=== PATIENT | male | born 1940 | race Caucasian/White ===

== ENCOUNTER 2022-02-14 08:40 | Day surgery (SDC) | payer MEDICARE, SELFPAY ==
[2022-02-14] MEDS: Tropicam./Phenyleph. (1/2.5%) 5 ML BTL OD ×3 (10:33→11:05)
[2022-02-14 10:35] VITALS: BP 190/110; PULSE 79; RESP 15; TEMP 36.7; O2SAT 98
--- NOTE | 2022-02-14 11:02 | W.ANESPRE ---
General Info Date of Service Date Performed: 02/14/22 Height: 5 ft 7 in Weight: 78.2 kg Body Mass Index (BMI): 27.0 Surgical Procedure: Operation Date: 02/14/22 12:40 Proposed Procedure Side Surgeon p Cataract Extraction with IOL Implant Right Yury Mcpherson MD Meds Allergies and Home Medications Allergies Allergy/AdvReac Type Severity Reaction Status Date / Time carbinoxamine AdvReac Intermediate Urinary Unverified 02/14/22 10:26 retention chlorpheniramine AdvReac Intermediate urinary Unverified 02/14/22 10:26 retention hydroxyzine [From Vistaril] AdvReac Intermediate urinary Unverified 02/14/22 10:26 retention paroxetine [From Paxil] AdvReac Intermediate swelling Unverified 02/14/22 10:26 of hands pseudoephedrine AdvReac Intermediate urinary Unverified 02/14/22 10:26 retention Home Medication Medication Instructions Recorded acetaminophen 500 mg tablet 1,000 mg PO DAILY PRN 02/11/22 cyanocobalamin (vitamin B-12) 1,000 mcg PO HS 02/11/22 1,000 mcg tablet fluoxetine 10 mg capsule 10 mg PO DAILY 02/11/22 losartan 50 mg-hydrochlorothiazide 1 tab PO DAILY 02/11/22 12.5 mg tablet magnesium 250 mg tablet 250 mg PO DAILY 02/11/22 meloxicam 15 mg tablet 15 mg PO DAILY 02/11/22 metoprolol succinate 50 mg 50 mg PO DAILY 02/11/22 tablet,extended release 24 hr nitroglycerin 0.4 mg sublingual 0.4 mg sublingual DIRECTED 02/11/22 tablet (Nitrostat) omeprazole 20 mg capsule,delayed 20 mg PO DAILY 02/11/22 release potassium chloride 10 mEq 40 meq PO DAILY PRN 02/11/22 tablet,extended release trazodone 50 mg tablet 50 mg PO HS 02/11/22 tramadol 50 mg disintegrating 50 mg PO PRN PRN 02/14/22 tablet Current Visit Medications: Current Medications Generic Name Dose Route Start Last Admin Trade Name Freq PRN Reason Stop Dose Admin Acetaminophen 1,000 mg 02/14/22 06:00 Acetaminophen 500 Mg Tab PO Q4H PRN PRN Dextrose/Lactated Ringer's 1,000 mls @ 150 mls/hr 02/14/22 11:00 Dextrose 5%-Lr IV INFUSION [facility] Miscellaneous Medication 0 ml 02/14/22 06:00 Prednisolone 1%, Moxifloxacin 0.5%, Nepafenac 0.1% 5ml Btl OD DIRECTED [facility] Miscellaneous Medication 0 ml 02/14/22 06:00 02/14/22 11:00 Tropicam./Phenyleph. (1/2.5%) 5 Ml Btl OD 1 drp DIRECTED ADEEL Administration Tetracaine HCl 0 ml 02/14/22 06:00 Tetracaine 0.5% 4 Ml Btl OD DIRECTED [facility] Medical History Medical History (Updated 02/14/22 @ 11:03 by Yury Mcpherson MD) Central serous chorioretinopathy Esophageal perforation During hiatal hernia repair 10/29/21 GERD (gastroesophageal reflux disease) Glucose intolerance (impaired glucose tolerance) History of anxiety HTN (hypertension) Humeral surgical neck fracture Hx of hiatal hernia Numbness of right hand Osteoarthritis of knee Pain in left shoulder Patient is full code Medical History Comments:: opiod sensitive; recent para esophageal hernia repair 11/07; upcoming surgeries for recent mass occluding urethra; daily does ducolax to liquify stools; insomnia, hasnt slept in last 3 days but 1-2hrs Surgical History Surgical History (Updated 02/14/22 @ 10:22 by Sylvie Mercado) History of back surgery L4-L5 fusion Hx of tonsillectomy Tobacco Smoking/Tobacco Use Status: Former Tobacco Use Alcohol Alcohol Intake: former Substance Use Substance use: Never Substance use type: does not use Vital Signs and Lab Results Vital Signs Most Recent Vital Signs in EMR: Most Recent Vital Signs Temp Pulse Resp BP Pulse Ox 36.7 C 79 15 190/110 H 98 02/14/22 10:35 02/14/22 10:35 02/14/22 10:35 02/14/22 10:35 02/14/22 10:35 Lab Results Blood Type / Crossmatch: No Data to Display Complete Blood Count: No Data to Display Complete Metabolic Panel: No Data to Display Liver Function Panel: No Data to Display Coagulation Panel: No Data to Display Cardiac Panel: No Data to Display Arterial Blood Gas: No Data to Display Venous Blood Gas: No Data to Display Pancreas Panel: No Data to Display Thyroid Panel: No Data to Display Infectious Disease: No Data to Display Blood Cultures: No Data to Display Toxicology Panel: No Data to Display Anesthesia Assessment and Plan Anesthesia History Personal History: No History of Anesthesia Complications Family History: No Family History of Anesthesia Complications Exercise Tolerance Exercise Tolerance: Metabolic Equivalents>4 Pertinent Negatives Pertinent Negatives: No Symptoms of GERD, No Major Cardiovascular Symptoms or Complaints, No Major Pulmonary Symptoms or Complaints and No History of CVA/TIA Cardiac & Pulmonary Exam Cardiac Exam: Normal S1/S2 Heart Sounds Pulmonary Exam: Clear Bilateral Breath Sounds Implantable Cardiac Device Does patient have a Pacemaker or an ICD?: No Airway Exam Known Difficult Airway: No Mallampati Class: 2 Mouth Opening: Normal (> 3cm) Thyromental Distance: Greater than 3 cm Neck Range of Motion: Full ROM Neck Circumference: Normal Teeth Condition: Normal Dentition ASA Classification ASA Score: ASA 2 Emergency Case?: No NPO Status NPO Status: NPO Clears >2 hours, Solids >8 hours Anesthesia Plan Resuscitation Status: Full Code Anesthesia Technique: MAC Anesthesia Airway Planned: Natural Airway Monitors Used: Standard Monitors Preoperative Comments:: BP elevated, BS 53, patient c/o dizziness, IV started D5LR, will manage BP intraop
[2022-02-14 11:04] VITALS: BMI 27.0
[2022-02-14] MEDS: DEXTROSE 5%-LACTATED RINGERS 1,000 ML 150 ML IV (11:06)
[2022-02-14] MEDS: Lidocaine 2% Jelly 6 ML SYR (11:20)
[2022-02-14] MEDS: Lactated Ringers 1,000 ML 30 ML IV (11:23)
[2022-02-14] MEDS: Tetracaine 0.5% 4 ML BTL OD (11:24)
[2022-02-14] MEDS: Balanced Salt Soln.-PLUS 500 ML BAG (11:25)
[2022-02-14] MEDS: Povidone-Iodine Ophth 30 ML BTL (11:28)
[2022-02-14 11:44] VITALS: BP 158/92; PULSE 81; RESP 16; TEMP 37.2; O2SAT 97
--- NOTE | 2022-02-14 11:47 | PDOC.DSDIS_ITS ---
Discharge Plan Disposition Patient Disposition: HOME Condition: Good Discharge Details Attending Provider: Yury Mcpherson Primary Care Provider: Parrish Khan [facility] and New Rx's Prescriptions: No Action trazodone 50 mg Tablet 50 mg PO HS metoprolol succinate 50 mg Tablet Extended Release 24 Hr 50 mg PO DAILY meloxicam 15 mg Tablet 15 mg PO DAILY acetaminophen 500 mg Tablet 1,000 mg PO DAILY PRN fluoxetine 10 mg Capsule 10 mg PO DAILY nitroglycerin [Nitrostat] 0.4 mg Tablet, Sublingual 0.4 mg sublingual DIRECTED magnesium 250 mg Tablet 250 mg PO DAILY losartan-hydrochlorothiazide 50-12.5 mg Tablet 1 tab PO DAILY cyanocobalamin (vitamin B-12) 1,000 mcg Tablet 1,000 mcg PO HS potassium chloride 10 mEq Tablet Extended Release 40 meq PO DAILY PRN omeprazole 20 mg Capsule,Delayed Release(Dr/Ec) 20 mg PO DAILY tramadol 50 mg Tablet,Disintegrating 50 mg PO PRN PRN Discharge Instructions Stand Alone Forms: Post-op Topical Cataract, Eddie Marquez (DSU) Discharge Orders Discharge Orders: Discharge Order (Routine); Ordered 02/14/22 Ordered By: Yury Mcpherson DS: Diagnosis Discharge Diagnosis (1) Nuclear sclerotic cataract of right eye: Status: Resolved
--- NOTE | 2022-02-14 11:48 | ROE_ITS ---
Date of service: 02/14/22 Time of Service: 11:48 Operative Note Operative Note DATE OF PROCEDURE: 02/14/22 PRE-OP DIAGNOSIS: Nuclear cataract, right eye POST-OP DIAGNOSIS: same PROCEDURE: Cataract extraction using phacoemulsification with intraocular lens implant, right eye SURGEON: Yury Mcpherson ANESTHESIA TYPE: Local By Surgeon and MAC Refer to Anesthesia Record ESTIMATED BLOOD LOSS: 0 PATHOLOGY: none sent COMPLICATIONS: None Patient was transported to: same day Patient's condition: stable Implants: Yung & Yung/SHIMA Tecnis [id number] Indications: Progressive visual loss due to cataract, right eye Procedure Description: CATARACT SURGERY OPERATIVE REPORT PREOPERATIVE DIAGNOSIS: 1. Nuclear cataract, right eye POSTOPERATIVE DIAGNOSIS: Same OPERATION: 1. Cataract extraction using phacoemulsification with posterior chamber intraocular lens implant, right eye. IOL: IOL Hydrogen Plant Operations Manager/Model: Yung & Yung / SHIMA Tecnis [id number] IOL Power: + 21.0 diopters IOL Serial Number: [id number] Optic Diameter: 6.0mm Haptic/Overall Diameter: 13.0mm PHACO INFO: DwainTop Haturion Vision System with OZil and Active Fluidics Cumulative Dispersed Energy (CDE): 16.97 seconds SURGEON: Yury Mcpherson MD, TAURUS ANESTHESIA: Monitored Anesthesia Care (MAC), with local sub-tenon's anesthetic infiltration COMPLICATIONS: None SPECIMENS: None INDICATIONS FOR PROCEDURE: The patient is a 81-year-old gentleman with history of diminished visual acuity in his right eye secondary to development of nuclear cataract. He was significantly symptomatic that he desired cataract surgery and attempt to improve and maximize his vision. The option of cataract surgery was offered to the patient and he wished to proceed. PROCEDURE: The correct surgical eye was identified and marked as the right eye and the pupil was dilated in the preoperative area using mydriatics and cycloplegics. The dilated pupil size was seven-point mm. The patient elected to proceed without oral sedation. The patient was brought to the operating room where cardiopulmonary monitoring was instituted and surgical time-out was performed, confirming the correct operative eye and IOL power. Topical anesthesia was administered and ophthalmic povidone-iodine 5% was instilled into the conjunctival fornices. Lidocaine gel was applied to the cornea and the mckay-ocular area was prepped with Betadine 10% solution and draped in the usual sterile fashion for intraocular surgery, including an aperture drape. A Tegaderm transparent film dressing was cut in half and used to cover the lashes and lid margins. Care was taken to sequester the lashes and lid margins under the Tegaderm dressing. A lid speculum was placed between the lids of the operative eye and the Dwain Lux[employer] Revalia operating microscope was maneuvered into position. Joann scissors were then used to make a conjunctival buttonhole approximately 6mm posterior to the limbus in the inferonasal quadrant. Blunt dissection was carried out to expose bare sclera, and a blunt-tipped sub-tenon?s anesthesia cannula was introduced and passed posteriorly along the globe where non- preserved plain lidocaine was injected into posterior sub-Tenon?s space. A sideport knife was used to make a paracentesis port inferotemporally. Intraocular phenylephrine/lidocaine was injected into the anterior chamber. The anterior chamber was filled with viscoelastic. A keratome knife was used to construct a 2-plane near-clear corneal tunnel extending 2.0mm into clear cornea superiortemporally. A flap was raised on the anterior capsule and capsulorhexis forceps were used to complete a continuous curvilinear capsulorhexis of 5.5 mm. Balanced salt solution was then used to perform cortical cleaving hydrodissection and nuclear hydrodelineation until the lens could be freely rotated within the capsular bag. The lens nucleus was then disassembled and removed within the capsular bag and iris plane using phacoemulsification. Residual cortical material was removed using the I/A handpiece. The posterior capsule was carefully polished to remove as much residual lens epithelial cells as safely possible. The capsular bag was then inflated and the anterior chamber deepened with viscoelastic. The lens implant described above was inserted into the capsular bag using the SHIMA [place] Injector. A Kuglen hook was used to dial the IOL into position. Residual viscoelastic was then removed first from posterior to the IOL, then from the anterior chamber using the I/A handpiece. The lens implant was noted to center nicely within the capsular bag. The incisions were stromally hydrated, and the anterior chamber was reformed using BSS. Then 0.5cc of moxifloxacin 1.0mg/ml were injected into the capsular bag and anterior chamber. The incisions were checked with a Weck spear and found to be secure. Several drops of ophthalmic povidone-iodine 5% were then applied to the eye followed by two drops of Imprimis combination prednisolone/moxifloxacin/nepafenac solution. The drapes were removed and a clear plastic protective eye shield was placed over the eye. The patient was then returned to Same Day Surgery in stable condition.
--- NOTE | 2022-02-14 12:11 | W.ANESPOSTOP ---
Postoperative Evaluation Date, Time and Location Date Performed: 02/14/22 Time Performed: 11:31 Patient Location: Day Surgery Unit Vital Signs Most Recent Imported Vital Signs: Most Recent Vital Signs Temp Pulse Resp BP Pulse Ox 37.2 C 81 16 158/92 H 97 02/14/22 11:44 02/14/22 11:44 02/14/22 11:44 02/14/22 11:44 02/14/22 11:44 Pain Score Most Recent Pain Score: Most Recent Pain Score Pain Level 0 02/14/22 11:44 Assessment Mental Status: Awake (Alert & Oriented to Patient Baseline) Airway and Respiratory Function: Patent airway with normal (patient baseline) respiratory exam Cardiovascular Function: Hemodynamically Stable Hydration Status: Adequately Hydrated Nausea & Vomiting: No Nausea or Vomiting Pain: Pt. Denies Any Pain Peripheral Nerve Block: Patient did not receive a nerve block
== END 2022-02-14 12:45 | disposition home or self-care (01) ==
PROVIDERS: PCP Neuromusculoskeletal Medicine & OMM; Visit Provider Ophthalmology
PROC: (CPT 66984; principal; 2022-02-14 12:30)
DX: H25.11 Age-related nuclear cataract, right eye (principal); I10 Essential (primary) hypertension
CPT/HCPCS: 66984; V2632; J0360

== ENCOUNTER 2022-02-28 07:05 | Day surgery (SDC) | payer MEDICARE, SELFPAY ==
--- NOTE | 2022-02-28 05:03 | W.ANESPRE ---
General Info Date of Service Date Performed: 02/28/22 Height: 5 ft 10 in Weight: 81 kg Body Mass Index (BMI): 25.6 Surgical Procedure: Operation Date: 02/28/22 09:10 Proposed Procedure Side Surgeon p Cataract Extraction with IOL Implant Left Yury Mcpherson MD Meds Allergies and Home Medications Allergies Allergy/AdvReac Type Severity Reaction Status Date / Time carbinoxamine AdvReac Intermediate Urinary Unverified 02/28/22 07:55 retention chlorpheniramine AdvReac Intermediate urinary Unverified 02/28/22 07:55 retention hydroxyzine [From Vistaril] AdvReac Intermediate urinary Unverified 02/28/22 07:55 retention paroxetine [From Paxil] AdvReac Intermediate swelling Unverified 02/28/22 07:55 of hands pseudoephedrine AdvReac Intermediate urinary Unverified 02/28/22 07:55 retention Home Medication Medication Instructions Recorded acetaminophen 500 mg tablet 1,000 mg PO DAILY PRN 02/11/22 cyanocobalamin (vitamin B-12) 1,000 mcg PO HS 02/11/22 1,000 mcg tablet fluoxetine 10 mg capsule 10 mg PO DAILY 02/11/22 losartan 50 mg-hydrochlorothiazide 1 tab PO DAILY 02/11/22 12.5 mg tablet magnesium 250 mg tablet 250 mg PO DAILY 02/11/22 meloxicam 15 mg tablet 15 mg PO DAILY 02/11/22 metoprolol succinate 50 mg 50 mg PO DAILY 02/11/22 tablet,extended release 24 hr nitroglycerin 0.4 mg sublingual 0.4 mg sublingual DIRECTED 02/11/22 tablet (Nitrostat) omeprazole 20 mg capsule,delayed 20 mg PO DAILY 02/11/22 release potassium chloride 10 mEq 40 meq PO DAILY PRN 02/11/22 tablet,extended release trazodone 50 mg tablet 50 mg PO HS 02/11/22 tramadol 50 mg disintegrating 50 mg PO PRN PRN 02/14/22 tablet brimonidine 0.025 % eye drops 1 drp ophthalmic (eye) BID-QID PRN 02/28/22 (Lumify) fluoxetine 20 mg capsule (Prozac) 20 mg PO BID 02/28/22 Current Visit Medications: Current Medications Generic Name Dose Route Start Last Admin Trade Name Freq PRN Reason Stop Dose Admin Acetaminophen 1,000 mg 02/28/22 06:00 Acetaminophen 500 Mg Tab PO Q4H PRN PRN Miscellaneous Medication 0 ml 02/28/22 06:00 Prednisolone 1%, Moxifloxacin 0.5%, Nepafenac 0.1% 5ml Btl OS DIRECTED [facility] Miscellaneous Medication 0 ml 02/28/22 06:00 Tropicam./Phenyleph. (1/2.5%) 5 Ml Btl OS DIRECTED [facility] Tetracaine HCl 0 ml 02/28/22 06:00 Tetracaine 0.5% 4 Ml Btl OS DIRECTED [facility] PFS Active Problems Active Problems: Problem Status Onset Code Nuclear sclerotic cataract of left eye H25.12 Nuclear sclerotic cataract of right eye H25.11 Medical History Medical History (Updated 02/28/22 @ 07:54 by Sylvie Mercado) Central serous chorioretinopathy Esophageal perforation During hiatal hernia repair 10/29/21 GERD (gastroesophageal reflux disease) Glucose intolerance (impaired glucose tolerance) History of anxiety HTN (hypertension) Humeral surgical neck fracture Hx of cataract Hx of hiatal hernia Numbness of right hand Osteoarthritis of knee Pain in left shoulder Patient is full code Surgical History Surgical History History of back surgery L4-L5 fusion Hx of tonsillectomy Tobacco Smoking/Tobacco Use Status: Former Tobacco Use Alcohol Alcohol Intake: former Substance Use Substance use: Never Substance use type: does not use Vital Signs and Lab Results Vital Signs Most Recent Vital Signs in EMR: Temp Pulse Resp BP Pulse Ox 36.6 C 56 L 16 182/87 H 100 02/28/22 08:20 02/28/22 08:20 02/28/22 08:20 02/28/22 08:20 02/28/22 08:20 Lab Results Blood Type / Crossmatch: No Data to Display Complete Blood Count: No Data to Display Complete Metabolic Panel: No Data to Display Liver Function Panel: No Data to Display Coagulation Panel: No Data to Display Cardiac Panel: No Data to Display Arterial Blood Gas: No Data to Display Venous Blood Gas: No Data to Display Pancreas Panel: No Data to Display Thyroid Panel: No Data to Display Infectious Disease: No Data to Display Blood Cultures: No Data to Display Toxicology Panel: No Data to Display Anesthesia Assessment and Plan Anesthesia History Personal History: No History of Anesthesia Complications Family History: No Family History of Anesthesia Complications Exercise Tolerance Exercise Tolerance: Metabolic Equivalents>4 Cardiac & Pulmonary Exam Cardiac Exam: Normal S1/S2 Heart Sounds Pulmonary Exam: Clear Bilateral Breath Sounds Implantable Cardiac Device Does patient have a Pacemaker or an ICD?: No Airway Exam Known Difficult Airway: No Mallampati Class: 2 Mouth Opening: Normal (> 3cm) Thyromental Distance: Greater than 3 cm Neck Range of Motion: Full ROM Neck Circumference: Normal Teeth Condition: Normal Dentition ASA Classification ASA Score: ASA 2 Emergency Case?: No NPO Status NPO Status: NPO Clears >2 hours, Solids >8 hours Anesthesia Plan Resuscitation Status: Full Code Anesthesia Technique: MAC Anesthesia Airway Planned: Natural Airway Monitors Used: Standard Monitors Preoperative Comments:: 81 yo male for repeat cataract. Sig PMHx: HTN (losartan, HCTZ, metoprolol), GERD (omeprozole), anxiety, L4-5 fusion, glucose intolerance, former smoker (1973), former EtOH. has NTG rx list states that he was prescribed this when he was having chest pain r/t his hiatal hernia - but denies any CAD. Previous Cat without MKO, previous note BP elevated, BS 53, patient c/o dizziness, IV started D5LR, will manage BP intraop
[2022-02-28] MEDS: Tropicam./Phenyleph. (1/2.5%) 5 ML BTL OS ×3 (08:02→08:14)
[2022-02-28 08:20] VITALS: BP 182/87; PULSE 56; RESP 16; TEMP 36.6; O2SAT 100
[2022-02-28 08:37] VITALS: BMI 25.6
[2022-02-28] MEDS: Tetracaine 0.5% 4 ML BTL OS (09:03)
[2022-02-28] MEDS: Balanced Salt Soln.-PLUS 500 ML BAG (09:15)
[2022-02-28] MEDS: Duovisc Viscoelastic System EACH 1 EACH (09:16)
[2022-02-28] MEDS: Lidocaine 2% Jelly 6 ML SYR (09:17)
[2022-02-28] MEDS: Povidone-Iodine Ophth 30 ML BTL (09:18)
[2022-02-28] MEDS: Lidocaine 1% Multi-Dose 10 ML VIAL (09:18)
--- NOTE | 2022-02-28 09:28 | ROE_ITS ---
Date of service: 02/28/22 Time of Service: 09:29 Operative Note Operative Note DATE OF PROCEDURE: 02/28/22 PRE-OP DIAGNOSIS: Nuclear cataract, left eye POST-OP DIAGNOSIS: same PROCEDURE: Cataract extraction using phacoemulsification with intraocular lens implant, left eye SURGEON: Yury Mcpherson ANESTHESIA TYPE: Local By Surgeon and MAC Refer to Anesthesia Record PATHOLOGY: none sent COMPLICATIONS: None Patient was transported to: same day Patient's condition: stable Implants: Yung and Yung / [employer] Tecnis [id number] Indications: Progressive decreased vision due to cataract, left eye Procedure Description: CATARACT SURGERY OPERATIVE REPORT PREOPERATIVE DIAGNOSIS: 1. Nuclear cataract, left eye POSTOPERATIVE DIAGNOSIS: Same OPERATION: 1. Cataract extraction using phacoemulsification with posterior chamber intraocular lens implant, left eye. IOL: IOL Business Administration Program Chair/Model: Yung [employer] Yung / SHIMA Tecnis [id number] IOL Power: + 21.0 diopters IOL Serial Number: [id number] Optic Diameter: 6.0 mm Haptic/Overall Diameter: 13.0 mm PHACO INFO: Dwain Ventas Priv[employer]urion Vision System with OZil and Active Fluidics Cumulative Dispersed Energy (CDE): 14.71 seconds SURGEON: Yury Mcpherson MD, TAURUS ANESTHESIA: Monitored A [facility] (MAC), with local sub-tenon's anesthetic infiltration COMPLICATIONS: None SPECIMENS: None INDICATIONS FOR PROCEDURE: The patient is a 81-year-old gentleman with history of progressive decreased vision in both eyes secondary to the development of bilateral nuclear cataract. He has already undergone cataract surgery in his right eye and is doing well postoperatively. He now presents for cataract surgery in the left eye. PROCEDURE: The correct surgical eye was identified and marked as the left eye and the pupil was dilated in the preoperative area using mydriatics and cycloplegics. The dilated pupil size was 7.0 mm. The patient elected to proceed without oral sedation. The patient was brought to the operating room where cardiopulmonary monitoring was instituted and surgical time-out was performed, confirming the correct operative eye and IOL power. Topical anesthesia was administered and ophthalmic povidone-iodine 5% was instilled into the conjunctival fornices. Lidocaine gel was applied to the cornea and the mckay-ocular area was prepped with Betadine 10% solution and draped in the usual sterile fashion for intraocular surgery, including an aperture drape. A Tegaderm transparent film dressing was cut in half and used to cover the lashes and lid margins. Care was taken to sequester the lashes and lid margins under the Tegaderm dressing. A lid speculum was placed between the lids of the operative eye and the Dwain LuxOR Revalia operating microscope was maneuvered into position. Joann scissors were then used to make a conjunctival buttonhole approximately 6mm posterior to the limbus in the inferonasal quadrant. Blunt dissection was carried out to expose bare sclera, and a blunt-tipped sub-tenon?s anesthesia ca nnula was introduced and passed posteriorly along the globe where non-preserved plain lidocaine was injected into posterior sub-Tenon?s space. A sideport knife was used to make a paracentesis port superiorly/superiortemporally. Intraocular phenylephrine/lidocaine was injected int the anterior chamber.. The anterior chamber was filled with viscoelastic. A keratome knife was used to construct a 2-plane near-clear corneal tunnel extending 2.0mm into clear cornea temporally. A flap was raised on the anterior capsule and capsulorhexis forceps were used to complete a continuous curvilinear capsulorhexis of 5.0 mm. Balanced salt solution was then used to perform cortical cleaving hydrodissection and nuclear hydrodelineation until the lens could be freely rotated within the capsular bag. The lens nucleus was then disassembled and removed within the capsular bag and iris plane using phacoemulsification. Residual cortical material was removed using the 45-degree angled silicone I/A tip with 0.3mm port. The posterior capsule was carefully polished to remove as much residual lens epithelial cells as safely possible. The capsular bag was then inflated and the anterior chamber deepened with viscoelastic. The lens implant described above was inserted into the capsular bag using the SHIMA [place] Injector. A Kuglen hook was used to dial the IOL into position. Residual viscoelastic was then removed first from posterior to the IOL, then from the anterior chamber using the I/A handpiece. The lens implant was noted to center nicely within the capsular bag. The incisions were stromally hydrated, and the anterior chamber was reformed using BSS. Then 0.5cc of moxifloxacin 1.0mg/ml were injected into the capsular bag and anterior chamber. The incisions were checked with a Weck spear and found to be secure. Several drops of ophthalmic povidone-iodine 5% were then applied to the eye followed by two drops of Imprimis combination prednisolone/moxifloxacin/nepafenac solution. The drapes were removed and a clear plastic protective eye shield was placed over the eye. The patient was then returned to Same Day Surgery in stable condition.
--- NOTE | 2022-02-28 09:28 | W.PM.DSUDISC ---
Discharge Plan Disposition Patient Disposition: HOME Condition: Good Discharge Details Attending Provider: Yury Mcpherson Primary Care Provider: Parrish Khan [place] Meds and New Rx's Prescriptions: No Action trazodone 50 mg Tablet 50 mg PO HS metoprolol succinate 50 mg Tablet Extended Release 24 Hr 50 mg PO DAILY meloxicam 15 mg Tablet 15 mg PO DAILY acetaminophen 500 mg Tablet 1,000 mg PO DAILY PRN fluoxetine 10 mg Capsule 10 mg PO DAILY nitroglycerin [Nitrostat] 0.4 mg Tablet, Sublingual 0.4 mg sublingual DIRECTED magnesium 250 mg Tablet 250 mg PO DAILY losartan-hydrochlorothiazide 50-12.5 mg Tablet 1 tab PO DAILY cyanocobalamin (vitamin B-12) 1,000 mcg Tablet 1,000 mcg PO HS potassium chloride 10 mEq Tablet Extended Release 40 meq PO DAILY PRN omeprazole 20 mg Capsule,Delayed Release(Dr/Ec) 20 mg PO DAILY tramadol 50 mg Tablet,Disintegrating 50 mg PO PRN PRN fluoxetine [Prozac] 20 mg Capsule 20 mg PO BID Label Comments: 20mg A.M.; 10mg HS Lumify 0.025 % Drops 1 drp OPHTHALMIC (EYE) BID-QID PRN Discharge Instructions Stand Alone Forms: Post-op Topical Cataract, Eddie Marquez ([facility]) Discharge Orders Discharge Orders: Discharge Order (Routine); Ordered 02/28/22 Ordered By: Yury Mcpherson DS: Diagnosis Discharge Diagnosis (1) Nuclear sclerotic cataract of left eye: Status: Resolved
[2022-02-28 09:32] VITALS: BP 155/90; PULSE 52; RESP 18; TEMP 36.5; O2SAT 100
--- NOTE | 2022-02-28 11:00 | W.ANESPOSTOP ---
Postoperative Evaluation Date, Time and Location Date Performed: 02/28/22 Time Performed: 09:26 Patient Location: Day [facility] Unit Vital Signs Most Recent Imported Vital Signs: Most Recent Vital Signs Temp Pulse Resp BP Pulse Ox 36.5 C 52 L 18 155/90 H 100 02/28/22 09:32 02/28/22 09:32 02/28/22 09:32 02/28/22 09:32 02/28/22 09:32 Pain Score Most Recent Pain Score: Most Recent Pain Score Pain Level 0 02/28/22 09:32 Assessment Mental Status: Awake (Alert & Oriented to Patient Baseline) Airway and Respiratory Function: Patent airway with normal (patient baseline) respiratory exam Cardiovascular Function: Hemodynamically Stable Hydration Status: Adequately Hydrated Nausea & Vomiting: No Nausea or Vomiting Pain: Pt. Denies Any Pain Peripheral Nerve Block: Patient did not receive a nerve block
== END 2022-02-28 10:58 | disposition home or self-care (01) ==
PROVIDERS: PCP Neuromusculoskeletal Medicine & OMM; Visit Provider Ophthalmology
PROC: (CPT 66984; principal; 2022-02-28 09:00)
DX: H25.12 Age-related nuclear cataract, left eye (principal); I10 Essential (primary) hypertension; K21.9 Gastro-esophageal reflux disease without esophagitis
CPT/HCPCS: 66984; V2632